=== PATIENT | female | born 1980 | race Caucasian/White ===

== ENCOUNTER → 2016-08-03 | Outpatient (CLI) | payer MEDICAID, OTHER ==
--- NOTE | 2016-08-04 09:10 | MR ---
EXAMINATION: MRI of the left knee HISTORY: Pain COMPARISON: None TECHNIQUE: Multiplanar and multisequence images obtained of the left knee without contrast. FINDINGS: The patellar and quadriceps tendons appear intact. The ACL and the PCL are intact. The med ial and lateral menisci appear preserved. There is likely a tiny ganglion cysts measuring 6 mm at th e origin of the ACL and the tibia. The articular surfaces appear preserved. There is no abnormal bon e marrow signal. No significant joint effusion. Trace Chauhan's cyst. There is also likely a small 8 m m ganglion cyst adjacent to the distal semimembranosus tendon. There is mildly increased signal with in the popliteus tendon. IMPRESSION: 1. No evidence of internal derangement of the knee. 2. Possible mild popliteus tendinosis.
--- NOTE | 2016-08-04 09:33 | MR ---
EXAMINATION: MRI of the right knee HISTORY: Pain COMPARISON: None TECHNIQUE: Multiplanar and multisequence images obtained of the right knee without contrast. FINDINGS: The patellar and quadriceps tendons appear normal. The ACL and the PCL appear intact. Ther e is likely a trace truncation of the body of the medial meniscus. The lateral meniscus appears pres erved. Medial and lateral collateral ligament complexes are intact. The articular surfaces are prese rved. There is no abnormal bone marrow signal. There is a trace Chauhan's cyst without a significant j oint effusion. There is mildly increased signal within the popliteus tendon. IMPRESSION: 1. No evidence of internal derangement of the knee. 2. Possible mild popliteus tendinosis. 3. Small Chauhan's cyst.
== END ==
LOC: MW.MRI 10:25
PROVIDERS: ATTEND Registered Nurse Emergency
DX: M25.561 Pain in right knee (principal); M25.562 Pain in left knee; R93.6 Abnormal findings on diagnostic imaging of limbs; M71.21 Synovial cyst of popliteal space [Baker], right knee
CPT/HCPCS: 73721-26-LT; 73721-26-RT; 73721-LT; 73721-RT

== ENCOUNTER 2016-10-07 18:40 | Emergency (ER) | payer MEDICAID, SELFPAY ==
[2016-10-07 20:17] LABS: CHLORIDE,CL 107 mmol/L (98-110); SODIUM,NA 137 mmol/L (136-146)
--- NOTE | 2016-10-07 20:27 | EDM.PDOC ---
ED HPI GENERAL MEDICAL PROBLEM - General Chief Complaint: General Stated Complaint: PT HAS SWOLLEN LEGS Time Seen by Provider: 10/07/16 19:20 Source of Information: Reports: Patient History Limitations: Reports: No Limitations - History of Present Illness INITIAL COMMENTS - FREE TEXT/NARRATIVE: History of present illness: [36-year-old female comes in complaining of bilateral lower extremity weakness. Patient indicates that she has had a long-standing history of very tight cast causing her to walk on her tippy toes and she has been being worked up for this when yesterday she woke up and had flaccid calves and is having difficulty ambulating. Patient has an altered gait fatigues easily.] Review of systems: As per history of present illness and below otherwise all systems reviewed and negative. Past medical history: As per history of present illness and as reviewed below otherwise noncontributory. Surgical history: As per history of present illness and as reviewed below otherwise noncontributory. Social history: No reported history of drug or alcohol abuse. Family history: As per history of present illness and as reviewed below otherwise noncontributory. Physical exam: HEENT: Atraumatic, normocephalic, pupils reactive, negative for conjunctival pallor or scleral icterus, mucous membranes moist, throat clear, neck supple, nontender, trachea midline. Lungs: Clear to auscultation, breath sounds equal bilaterally, chest nontender. Heart: S1S2, regular, negative for clicks, rubs, or JVD. Abdomen: Soft, nondistended, nontender. Negative for masses or hepatosplenomegaly. Negative for costovertebral tenderness. Pelvis: Stable nontender. Genitourinary: Deferred. Rectal: Deferred. Extremities: Atraumatic, negative for cords or calf pain. Neurovascular unremarkable. Neuro: Awake, alert, oriented. Cranial nerves II through XII unremarkable. Cerebellum unremarkable. Motor and sensory unremarkable throughout. Exam nonfocal. Global assessment is benign save the subjective complaint as noted in history of present illness patients bilateral calves are supple and the demonstrated gait is somewhat altered and would take significant amounts of energy to maintain. Diagnostics: [CBC, CMP] Therapeutics: [] Impression: [Weakness] Plan: [F/U with neurology] Definitive disposition and diagnosis as appropriate pending reevaluation and review of above. Bilateral Leg Pain Score (Numeric/FACES): 0 - Related Data Allergies Allergy/AdvReac Type Severity Reaction Status Date / Time divalproex sodium Allergy Change Verified 10/07/16 18:59 [From Depakote] Mental Status Home Meds: Home Meds Baclofen [Lioresal] 10 mg PO TID PRN 10/07/16 [History] Diclofenac Sodium [Voltaren] 50 mg PO TIDMEALS PRN 10/07/16 [History] Past Medical History - Past Health History Medical/Surgical History: Denies Medical/Surgical History Social & Family History - Family History Family Medical History: Noncontributory - Tobacco Use Smoking Status *Q: Current Every Day Smoker Years of Tobacco use: 20 Packs/Tins Daily: 0.5 - Caffeine Use Caffeine Use: Reports: Coffee - Recreational Drug Use Recreational Drug Use: No ED ROS GENERAL - Review of Systems Review Of Systems: See Below (See history of present illness) ED EXAM, GENERAL - Physical Exam Exam: See Below (See history of present illness) Course - Vital Signs Last Recorded V/S: Last Vital Signs Temp 36.4 C 10/07/16 19:00 Pulse 102 H 10/07/16 19:00 Resp 16 10/07/16 19:00 BP 111/81 10/07/16 19:00 Pulse Ox 97 10/07/16 19:00 - Orders/Labs/Meds Labs: Laboratory Tests 10/07/16 10/07/16 Range/Units 19:40 19:40 WBC 13.62 H (4.0-11.0) K/uL RBC 5.03 (4.30-5.90) M/uL Hgb 16.8 H (12.0-16.0) g/dL Hct 47.9 H (36.0-46.0) % MCV 95.2 (80.0-98.0) fL MCH 33.4 H (27.0-32.0) pg MCHC 35.1 (31.0-37.0) g/dL RDW Std Deviation 46.5 (28.0-62.0) fl RDW Coeff of Anh 13 (11.0-15.0) % Plt Count 354 (150-400) K/uL MPV 10.00 (7.40-12.00) fL Neut % (Auto) 55.9 (48.0-80.0) % Lymph % (Auto) 33.5 (16.0-40.0) % [place] % (Auto) 6.4 (0.0-15.0) % Eos % (Auto) 3.8 (0.0-7.0) % Baso % (Auto) 0.4 (0.0-1.5) % Neut # (Auto) 7.6 H (1.4-5.7) K/uL Lymph # (Auto) 4.6 H (0.6-2.4) K/uL [place] # (Auto) 0.9 H (0.0-0.8) K/uL Eos # (Auto) 0.5 (0.0-0.7) K/uL Baso # (Auto) 0.1 (0.0-0.1) K/uL Nucleated RBC % 0.0 /100WBC Nucleated RBCs # 0 K/uL Sodium 137 (136-146) mmol/L Potassium 4.6 (3.5-5.1) mmol/L Chloride 107 (98-110) mmol/L Carbon Dioxide 20 L (21-31) mmol/L BUN 11 (6.0-23.0) mg/dL Creatinine 0.9 (0.6-1.5) mg/dL Est Cr Clr Drug Dosing 87.17 mL/min Estimated GFR (MDRD) > 60.0 ml/min Glucose 105 (60-110) mg/dL Calcium 9.0 (8.8-10.8) mg/dL Total Bilirubin 0.3 (0.1-1.5) mg/dL AST 20 (5-40) IU/L ALT 18 (8-54) IU/L Alkaline Phosphatase 76 (40-150) Total Protein 7.8 (6.0-8.0) g/dL Albumin 4.3 (3.5-5.0) g/dL Globulin 3.5 (2.0-3.5) g/dL Albumin/Globulin Ratio 1.2 L (1.3-2.8) Amylase 44 (10-90) U/L Lipase 13 (7-80) U/L Departure - Departure Time of Disposition: 20:34 Disposition: Home, Self-Care 01 Condition: Good Clinical Impression: Weakness - Discharge Information Forms: ED Department Discharge Additional Instructions: The following information is given to patients seen in the emergency department who are being discharged to home. This information is to outline your options for follow-up care. We provide all patients seen in our emergency department with a follow-up referral. The need for follow-up, as well as the timing and circumstances, are variable depending upon the specifics of your emergency department visit. If you don't have a primary care physician on staff, we will provide you with a referral. We always advise you to contact your personal physician following an emergency department visit to inform them of the circumstance of the visit and for follow-up with them and/or the need for any referrals to a consulting specialist. The emergency department will also refer you to a specialist when appropriate. This referral assures that you have the opportunity for follow-up care with a specialist. All of these measure are taken in an effort to provide you with optimal care, which includes your follow-up. Under all circumstances we always encourage you to contact your private physician who remains a resource for coordinating your care. When calling for follow-up care, please make the office aware that this follow-up is from your recent emergency room visit. If for any reason you are refused follow-up, please contact the [facility] at and asked to speak to the emergency department charge nurse. Follow-up with neurology as discussed Follow-up with your PCP Monday Return to ED as needed as discussed
[2016-10-07 21:06] VITALS: BP 120/83
== END 2016-10-07 20:50 | disposition home or self-care (01) ==
LOC: MW.ED 18:40
DX: R29.898 Other symptoms and signs involving the musculoskeletal system (principal); F17.210 Nicotine dependence, cigarettes, uncomplicated; Z88.8 Allergy status to other drugs, medicaments and biological substances
CPT/HCPCS: 80053; 82150; 83690; 85025; 99282; 99283